=== PATIENT | male | born 1955 | race Caucasian/White ===

== ENCOUNTER 2023-10-31 16:45 | Emergency (ER) | payer OTHER, SELFPAY ==
--- NOTE | ~2023-10-31 | XR_ITS ---
EXAM: XR foot LT min 3V DATE: 10/31/2023 17:05 HISTORY: PARTIAL AMPUTATION FOOT VS BOAT MOTOR . COMPARISON: None available. FINDINGS: Normal mineralization. Tiny triangular fragment along the lateral aspect of the distal fir st phalanx tuft. No lytic or blastic lesion. Moderate degenerative change at the first MTP joint. Mod erate Achilles and plantar enthesopathy. No erosion or periosteal change. Bandage material over the f irst digit. Irregularity of the first digit nail and nailbed. IMPRESSION: Possible small avulsion/corner fracture on the lateral aspect of the distal first phalanx tuft, with suspected overlying nail/nailbed injury. Reviewed, dictated and finalized at location K. IMPRESSION: Possible small avulsion/corner fracture on the lateral aspect of th e distal first phalanx tuft, with suspected overlying nail/nailbed injury.
[2023-10-31 16:57] VITALS: BP 173/110; PULSE 76; RESP 20; O2SAT 94
--- NOTE | 2023-10-31 17:01 | ED.LOWEXIN ---
HPI - Extremity Injury (Lower) General Chief Complaint: Extremity Injury, Lower Stated Complaint: partial toe amputation Time Seen by Provider: 10/31/23 16:59 Source: patient Mode of arrival: ambulatory Limitations: no limitations History of Present Illness HPI Narrative: 68 years old white male came to the emergency room by private car complaining of a motor accidentally fell on his left big toe, shoes on, prior to arrival. He denies other injuries Related Data Allergies Allergy/AdvReac Type Severity Reaction Status Date / Time No Known Allergies Allergy Verified 01/21/16 23:52 Review of Systems Review of Systems: All systems reviewed & are unremarkable except as noted in HPI and below Exam Narrative: General appearance: Well-developed, well-nourished Skin: Normal color Head: Normocephalic, nontraumatic Eyes: Clear conjunctiva ENT: Oropharynx normal, ears normal, nose normal Neck: Supple, nontender Chest and respiratory: Airway patent, no respiratory distress, no accessory muscle use Heart: Regular rate/rhythm Abdomen: Soft, nontender, no organomegaly, quiet bowel sounds Vascular: Normal peripheral pulses, normal capillary refill. Musculoskeletal: left big toe showed broken to nail in 4 pieces, controlled bleeding, no deformity Neurologic: Alert and oriented ?3, EXPORT CLERK is normal as tested, no gross motor deficit Course Consultations Consultation #1: DR ARNDT /[employer], REQUESTED TO REMOVE THE NAIL COMPLETELY, CLEANED WOUND, ANTIBIOTIC, SEE HIM THIS WEEK OUTPATIENT Date: 10/31/23 Time: 18:00 Vital Signs Vital signs: Vital Signs Pulse Rate 76 10/31/23 16:57 Respiratory Rate 20 10/31/23 16:57 Blood Pressure 173/110 H 10/31/23 16:57 Pulse Oximetry 94 10/31/23 16:57 Temperature 36.7 C 10/31/23 17:08 Pulse Rate 87 10/31/23 17:52 Respiratory Rate 12 10/31/23 17:52 Blood Pressure 122/87 10/31/23 17:52 Pulse Oximetry 96 10/31/23 17:52 Procedures Laceration Laceration 1: Date: 10/31/23 Time: 18:54 Site: other ( LEFT BIG TOE NAIL BED) Side (If applicable): left Size (cm): 1 Description: irregular Depth: simple, single layer Local Anesthetic: lidocaine 1% Amount of anesthesia used (mL): 10 Pre-repair: wound explored and other ====== Skin Level ====== Skin layer closed with: other ( ETHILON) Size (cm): 6-0 Number of sutures: 3 Technique: simple, interrupted ====== Subcutaneous Layer ====== ====== Muscle Layer ====== ====== Tendon Layer ====== Other Procedure Procedure 1: Other Procedure: LEFT PEAK TOE CRUSH INJURY, RESULTED IN TO BROKEN TOENAIL WHICH ASSOCIATED WITH ONYCHOMYCOSIS RING ANESTHESIA WITH LIDOCAINE 1% WITHOUT EPI, THE NAIL BROKE IN IN 4 PIECES, THICK, REMOVED 1 X 1, LAST 1 WAS THE PROXIMAL PART WHICH WAS HARD TO BE REMOVED EVENTUALLY I WAS ABLE TO DO IT. NAILBED BLEEDING, 1 CM LACERATION, SUTURES X3 WITH ETHILON 6 0, COMPRESSION DRESSING, BLEEDING. , MDM - Extremity Injury (Lower) MDM Narrative Medical decision making narrative: LEFT BIG TOE INJURY ONYCHOMYCOSIS NAIL EXTRACTION 1 CM LACERATION OF THE NAILBED, SUTURED BLEEDING CONTROLLED, PATIENT RECEIVED 2 G OF ANCEF IV, DISCHARGED ON KEFLEX, FOLLOW-UP WITH DR. ARNDT IN 3 DAYS Differential Diagnosis Differential diagnosis: Likely other ( CONTUSION VERSUS FRACTURE) Imaging Data Attestation: I personally reviewed and interpreted this imaging study as follows: Radiologist's impression: Impressions Foot X-Ray 10/31/23 17:29 IMPRESSION: Possible small avulsion/corner fracture on the latera
[2023-10-31 17:08] VITALS: BP 155/99; PULSE 87; RESP 17; TEMP 36.7; O2SAT 99
[2023-10-31] MEDS: TETANUS,DIPHTHERIA,AC PERTUSSIS ADULT (0.5 ML) BOOSTRIX IM (17:12)
[2023-10-31 17:52] VITALS: BP 122/87; PULSE 87; RESP 12; O2SAT 96
[2023-10-31] MEDS: ceFAZolin 2 GM/D5W 50 ML 2 GM/50 ML BAG IVPB (19:01)
[2023-10-31 19:36] VITALS: BP 144/80; PULSE 78; RESP 16; O2SAT 100
== END 2023-10-31 19:37 | disposition home or self-care (01) ==
PROVIDERS: Emergency Provider Emergency Medicine
DX: S91.212A Laceration without foreign body of left great toe with damage to nail, initial encounter (principal); S92.425A Nondisplaced fracture of distal phalanx of left great toe, initial encounter for closed fracture; B35.1 Tinea unguium; Z23 Encounter for immunization; W20.8XXA Other cause of strike by thrown, projected or falling object, initial encounter
CPT/HCPCS: 11760; 12001; 73630; 90471; 90715; 96365; 99284; J0690